=== PATIENT | female | born 1945 | race Caucasian/White ===

== ENCOUNTER 2017-08-23 04:40 | Inpatient (IN) | payer MEDICARE, OTHER ==
[2017-08-23] VITALS (8 sets, daily range): BP systolic 110–154; BP diastolic 55–79
[~2017-08-23] VITALS: Ht 170.2 cm; Wt 72.6 kg
[2017-08-23] MEDS ORDERED: UNOBMED (04:45)
--- NOTE | 2017-08-23 05:36 | Emergency Room Report ---
History of Present Illness General Chief Complaint: Dyspnea/Respdistress Source: Patient, Family Member Present Illness HPI [id number] with measured fever 38/39C at home, chills tonight and "not feeling well. " Mild cough Denies chest pain, SOB, abd pain, dysuria Was visiting ex- in hospital "had to wait in waiting room with sick people" recently. About 2-3 weeks ago, finished Abx for "kidney infection" Supposed to be on suppleemntal O2 for "asthma" but non-compliant per son Allergies: Coded Allergies: TETANUS VACCINES AND TOXOID (Verified Allergy, Unknown, 08/23/17) Patient History Past Medical History: COPD Past Surgical History: none Pertinent Family History: none Social History: Denies: smoking, alcohol use, drug use Now: No Immunizations: UTD Reviewed Nursing Documentation: PMH: Agreed, PSxH: Agreed Review of Systems All Other Systems: negative except mentioned in HPI Physical Exam Vital Signs Date Time Temp Pulse Resp B/P (MAP) Pulse Ox O2 Delivery O2 Flow Rate FiO2 08/23/17 04:39 100.2 114 18 171/70 94 Nasal Cannula Sp02 EP Interpretation: reviewed, normal General Appearance: normal inspection, well appearing, no apparent distress, alert, GCS 15, non-toxic, obese Head: normocephalic, atraumatic Eyes: bilateral eye PERRL, bilateral eye EOMI ENT: normal ENT inspection, hearing grossly normal, normal pharynx, no angioedema, normal voice, TMs + canals normal, uvula midline, moist mucus membranes Neck: normal inspection, full range of motion, supple, thyroid normal, no meningismus, no bony tend Respiratory: normal inspection, lungs clear, normal breath sounds, no rhonchi, no respiratory distress, no retraction, no accessory muscle use, no wheezing, speaking full sentences Cardiovascular #1: regular rate, rhythm, no edema, no JVD, normal capillary refill Gastrointestinal: normal inspection, normal bowel sounds, non tender, soft, no mass, no peritonitis, non-distended, no guarding, no hernia, no pulsatile mass Genitourinary: no CVA tenderness Musculoskeletal: normal inspection, back normal, normal range of motion, no calf tenderness, pelvis stable, Najma's Sign negative Neurologic: normal inspection, alert, oriented x3, responsive, 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 I attest that this information is true, accurate and complete to the best of my knowledge. I understand that any falsification, omission, or concealment of material fact may subject me to administrative, civil, or criminal liability. This patient warrants hospital admission for extreme of age and has a condition that cannot be treated as outpatient. Diagnostic Impression: Primary Impression: Sepsis Qualified Codes: A41.9 - Sepsis, unspecified organism Additional Impression: Pneumonia Qualified Codes: J18.1 - Lobar pneumonia, unspecified organism ER Course VS with tachycardia, fever Likely sepsis CXR with hazy opacity right lung Empiric Abx given Blood Cx pending Elevated leukocytosis Endorsed tele admission Dr Thomas for panel Sepsis Re-examination Time: 537am VS: Temp 99 HR 106 BP 140/84 RR 16 CVS: RRR Respiratory: Lungs clear bilaterally Peripheral pulses: 2+ radial Capillary refill: <2 seconds Skin exam: warm, dry, no rash, not mottled EKG Diagnostic Results Rate: tachycardiac Rhythm: NSR ST Segments: no acute changes ASA given to the pt in ED: No Rhythm Strip Diag. Results EP Interpretation: yes Rate: 105 Rhythm: NSR, no PVC's, no ectopy Chest X-Ray Diagnostic Results Chest X-Ray Diagnostic Results : Chest X-Ray Ordered: Yes # of Views/Limited/Complete: 1 View Indication: Shortness of Breath EP Interpretation: Yes Interpretation: no effusion, no pneumothorax, no acute cardiopulmonary disease, other - Right sided infiltrate Electronically Signed by: Dr Martha Lim MD Last Vital Signs Date Time Temp Pulse Resp B/P (MAP) Pulse Ox O2 Delivery O2 Flow Rate FiO2 08/23/17 04:39 100.2 114 18 171/70 94 Nasal Cannula Status: improved Disposition: ADMITTED INPATIENT Condition: Serious Referrals: NON PHYSICIAN (PCP) MARTHA LIM M.D. Aug 23, 2017 05:36
[2017-08-23 05:44] LABS: BASOPHILS % (AUTO) 0.6 % (0.0-2.0); EOSINOPHILS % (AUTO) 0.1 % (0.0-3.0); LYMPHOCYTES % (AUTO) 8.3 % (20.0-45.0); MEAN CORPUSCULAR HEMOGLOBIN 29.4 PG (27.0-31.0); MEAN CORPUSCULAR HGB CONC 32.4 G/DL (32.0-36.0); MEAN CORPUSCULAR VOLUME 91 FL (80-99); MEAN PLATELET VOLUME 7.4 FL (6.5-10.1); MONOCYTES % (AUTO) 7.8 % (1.0-10.0); NEUTROPHILS % (AUTO) 83.3 % (45.0-75.0); PLATELET COUNT 248 K/UL (150-450); RED BLOOD COUNT 5.03 M/UL (4.20-5.40); RED CELL DISTRIBUTION WIDTH 12.6 % (11.6-14.8); WHITE BLOOD COUNT 16.1 K/UL (4.8-10.8)
[2017-08-23 06:06] LABS: ANION GAP 11 mmol/L (5-15); CALCIUM 8.6 MG/DL (8.5-10.1); CARBON DIOXIDE 21 MMOL/L (21-32); CHLORIDE 106 MMOL/L (98-107); CREATININE 0.7 MG/DL (0.55-1.30); POTASSIUM 3.1 MMOL/L (3.5-5.1); SODIUM 138 MMOL/L (136-145)
[2017-08-23 06:18] LABS: ALANINE AMINOTRANSFERASE 22 U/L (12-78); ALBUMIN/GLOBULIN RATIO 0.6 (1.0-2.7); ASPARTATE AMINO TRANSFERASE 21 U/L (15-37); CKMB < 0.5 NG/ML (0.0-3.6); TOTAL PROTEIN 6.8 G/DL (6.4-8.2)
[2017-08-23 06:23] LABS: BILIRUBIN,DIRECT 0.2 MG/DL (0.0-0.3)
--- NOTE | 2017-08-23 12:40 | Diagnostic Imaging Report ---
Indication: Shortness of breath Technique: One view of the chest Comparison: None Findings: There is cardiomegaly. There is bilateral interstitial and airspace disease diffusely. No definite effusions. Impression: Bilateral interstitial and alveolar infiltrates versus edema diffusely Cardiomegaly
[2017-08-23] MEDS ORDERED: Albuterol/Ipratropium 3ml neb HHN PRN (13:15)
[2017-08-23 14:28] LABS: APPEARANCE,URINE CLEAR; KETONES,URINE NEGATIVE (NEGATIVE); LEUKOCYTE ESTERASE ,URINE 1+ (NEGATIVE); NITRITE,URINE NEGATIVE (NEGATIVE); PH,URINE 5 (4.5-8.0); PROTEIN,URINE NEGATIVE (NEGATIVE); UROBILINOGEN,URINE NORMAL MG/DL (0.0-1.0)
[2017-08-23 14:37] LABS: BACTERIA,URINE FEW /HPF; SQUAMOUS EPITHELIAL CELL,UR FEW /LPF (NONE/OCC)
[2017-08-23] MEDS: D5NS 1,000 ML IV SCH (15:23)
[2017-08-23] MEDS ORDERED: cefTRIAXone 1 GM in D5W 55 ML IVPB SCH (15:30)
[2017-08-23] MEDS: Heparin 5000 units/ml inj SUBQ SCH (20:58)
[2017-08-23] MEDS: NovoLOG Insulin Flexpen SUBQ SCH (21:00)
--- NOTE | 2017-08-23 21:45 | History and Physical Report ---
DATE OF ADMISSION: 08/23/2017 CHIEF COMPLAINT: Pneumonia, possible acute [place]. HISTORY OF PRESENT ILLNESS: The patient is a 72-year-old female. She has a history of hypertension and diabetes, presented with complaints of shortness of breath, cough, congestion, subjective fevers and chills for several weeks prior to admission. She denies any ill contacts. She states she has had a productive cough that has not improved. Because of persisting cough, congestion, and subjective fevers and chills, she presented to the emergency room. On evaluation there, she had an elevated white count of 16,000. X-ray showed bilateral interstitial and alveolar infiltrates. The patient has been pancultured, started on broad-spectrum IV antibiotic therapy. She is now admitted for further inpatient evaluation and care. PAST MEDICAL HISTORY: Significant for history of hypertension and diabetes. PAST SURGICAL HISTORY: None. CURRENT MEDICATIONS: Reconciled and reviewed. ALLERGIES: Include tetanus. SOCIAL HISTORY: Negative for tobacco, ethanol, or drugs. FAMILY HISTORY: Noncontributory. REVIEW OF SYSTEMS: CONSTITUTIONAL: Positive fevers and chills, but no night sweats. HEENT: No headaches or visual changes. CARDIOPULMONARY: No chest pain. Positive shortness breath, cough, and congestion. GASTROINTESTINAL: No nausea or vomiting. GENITOURINARY: No urgency or frequency. MUSCULOSKELETAL: No joint pain or swelling. NEUROLOGIC: No evidence of seizures. PHYSICAL EXAMINATION: VITAL SIGNS: Temperature 98.4, pulse 87, respirations 25, and blood pressure 121/57. GENERAL: The patient is a well developed female, in no apparent distress. HEART: Regular rate and rhythm. LUNGS: Significant for bibasilar rales, right greater than left. ABDOMEN: Soft, nontender, and nondistended. EXTREMITIES: Significant for 1+ pitting edema. LABORATORY DATA: Sodium 138, potassium 4.1, creatinine 0.7, and glucose 148. Lactic acid was 0.8. Bilirubin was 1.1. Troponin 0.120. White count was 16,000, hemoglobin 14, hematocrit 45, and platelets 248. UA was clear. Chest x-ray showed bilateral interstitial infiltrates. ASSESSMENT: 1. This is a pleasant 72-year-old female, admitted with complaints of pneumonia, possible community-acquired pneumonia. 2. Possible acute myocardial infarction. 3. Hypertension. 4. Diabetes. PLAN: Intravenous antibiotic therapy. Supplemental oxygen. Respiratory treatments. We will trend enzymes. Antiplatelet therapy. We will check a venous duplex of the lower extremities. We will check cultures. Cardiology, Infectious Disease, and Pulmonary consultations will be obtained. Herbie Thomas M.D. DR: THIAGO JOB#: [id number] CC:
[2017-08-23] MEDS: Zolpidem 5mg tab ORAL PRN (22:37)
[2017-08-23] MEDS: metFORMIN 500mg tab ORAL SCH (22:37)
[2017-08-23] MEDS: cefTRIAXone 1 GM in D5W 55 ML IVPB SCH (23:57)
[2017-08-24] VITALS (7 sets, daily range): BP systolic 115–158; BP diastolic 55–80
[2017-08-24] MEDS: D5NS 1,000 ML IV SCH ×2 (02:30→15:55)
[2017-08-24] MEDS: NovoLOG Insulin Flexpen SUBQ SCH ×4 (06:00→21:00)
[2017-08-24] MEDS: metFORMIN 500mg tab ORAL SCH ×3 (06:00→17:26)
[2017-08-24 08:21] LABS: BASOPHILS % (AUTO) 0.8 % (0.0-2.0); EOSINOPHILS % (AUTO) 0.5 % (0.0-3.0); LYMPHOCYTES % (AUTO) 24.6 % (20.0-45.0); MEAN CORPUSCULAR HEMOGLOBIN 29.8 PG (27.0-31.0); MEAN CORPUSCULAR HGB CONC 32.7 G/DL (32.0-36.0); MEAN CORPUSCULAR VOLUME 91 FL (80-99); MEAN PLATELET VOLUME 7.8 FL (6.5-10.1); MONOCYTES % (AUTO) 13.5 % (1.0-10.0); NEUTROPHILS % (AUTO) 60.5 % (45.0-75.0); PLATELET COUNT 249 K/UL (150-450); RED BLOOD COUNT 4.65 M/UL (4.20-5.40); RED CELL DISTRIBUTION WIDTH 12.5 % (11.6-14.8); WHITE BLOOD COUNT 9.4 K/UL (4.8-10.8)
[2017-08-24 08:50] LABS: ANION GAP 7 mmol/L (5-15); CARBON DIOXIDE 28 MMOL/L (21-32); CHLORIDE 106 MMOL/L (98-107); CHOLESTEROL 262 MG/DL (< 200); CHOLESTEROL/HDL RATIO 5.2 (3.3-4.4); CREATININE 0.9 MG/DL (0.55-1.30); POTASSIUM 4.2 MMOL/L (3.5-5.1); SODIUM 141 MMOL/L (136-145); THYROID STIMULATING HORMONE 2.297 uiU/mL (0.358-3.740)
[2017-08-24] MEDS: Levofloxacin 500mg tab ORAL SCH (10:20)
[2017-08-24] MEDS: Aspirin EC 81mg tab ORAL SCH (10:20)
[2017-08-24] MEDS: Tolterodine 2mg tab ORAL SCH ×2 (10:21→17:26)
[2017-08-24] MEDS: Heparin 5000 units/ml inj SUBQ SCH ×2 (10:23→21:14)
--- NOTE | 2017-08-24 11:09 | General Progress Note ---
Assessment/Plan Problem List: (1) Dysphagia ICD Codes: R13.10 - Dysphagia, unspecified SNOMED: 48865035, 117509117 (2) Diabetes ICD Codes: E11.9 - Type 2 diabetes mellitus without complications SNOMED: 57034979 (3) AMI (acute mesenteric ischemia) ICD Codes: K55.059 - Acute (reversible) ischemia of intestine, part and extent unspecified SNOMED: 12500983 (4) Sepsis ICD Codes: A41.9 - Sepsis, unspecified organism SNOMED: 93622949 Qualifiers: Qualified Codes: A41.9 - Sepsis, unspecified organism (5) Pneumonia ICD Codes: J18.9 - Pneumonia, unspecified organism SNOMED: 746349293 Qualifiers: Qualified Codes: J18.1 - Lobar pneumonia, unspecified organism Status: stable, progressing Assessment/Plan iv abx id eval video swallow monitor cxr cards eval cont diabetes rx bp rx Subjective ROS Limited/Unobtainable: No Constitutional: Reports: malaise, weakness HEENT: Reports: no symptoms Cardiovascular: Reports: no symptoms Respiratory: Reports: cough Gastrointestinal/Abdominal: Reports: difficulty swallowing Genitourinary: Reports: no symptoms Neurologic/Psychiatric: Reports: no symptoms Endocrine: Reports: no symptoms Hematologic/Lymphatic: Reports: no symptoms Allergies: Coded Allergies: TETANUS VACCINES AND TOXOID (Verified Allergy, Unknown, 08/23/17) All Systems: reviewed and negative except above Subjective better today. decreased sob. problems with swallowing. wbc trending down Objective Last 24 Hour Vital Signs Date Time Temp Pulse Resp B/P (MAP) Pulse Ox O2 Delivery O2 Flow Rate FiO2 08/24/17 04:06 97.5 85 20 158/80 89 Room Air 82 08/24/17 04:00 86 08/24/17 03:22 97.5 92 18 126/59 93 Room Air 08/24/17 00:00 101 08/24/17 00:00 97.5 72 19 115/67 96 Room Air 74 08/23/17 20:24 99.0 95 18 130/55 96 Room Air 08/23/17 20:00 98 08/23/17 16:16 97.0 84 18 152/78 95 Room Air 08/23/17 16:00 90 08/23/17 14:50 98.4 87 25 121/57 97 Room Air 2.0 08/23/17 13:38 98.4 87 25 121/57 97 Room Air 08/23/17 12:40 98.4 94 18 115/79 95 Nasal Cannula 2.0 Intake and Output 08/23/17 08/24/17 19:00 07:00 Intake Total 270 ml Balance 270 ml Intake Oral 120 ml IV Total 150 ml # Voids 1 # Bowel Movements 2 Laboratory Tests 08/23/17 13:24: Troponin I 0.267H 08/23/17 14:02: Urine Color Pale yellow, Urine Appearance Clear, Urine pH 5, Urine Specific [place] 1.005, Urine Protein Negative, Urine Glucose (UA) Negative, Urine Ketones Negative, Urine Occult Blood 4+H, Urine Nitrite Negative, Urine Bilirubin Negative, Urine Urobilinogen Normal, Urine Leukocyte Esterase 1+H, Urine RBC 2-4H, Urine WBC 5-10H, Urine Squamous Epithelial Cells Few, Urine Bacteria Few 08/24/17 07:10: Troponin I 0.061H, White Blood Count 9.4, Red Blood Count 4.65, Hemoglobin 13.9 , Hematocrit 42.3, Mean Corpuscular Volume 91, Mean Corpuscular Hemoglobin 29.8 , Mean Corpuscular Hemoglobin Concent 32.7, Red Cell Distribution Width 12.5, Platelet Count 249, Mean Platelet Volume 7.8, Neutrophils (%) (Auto) 60.5, Lymphocytes (%) (Auto) 24.6, Monocytes (%) (Auto) 13.5H, Eosinophils (%) (Auto) 0.5, Basophils (%) (Auto) 0.8, Sodium Level 141, Potassium Level 4.2, Chloride Level 106, Carbon Dioxide Level 28, Anion Gap 7, Blood Urea Nitrogen 18, Creatinine 0.9, Estimat Glomerular Filtration Rate , Glucose Level 127H, Calcium Level 9.0, Triglycerides Level 191H, Cholesterol Level 262H, LDL Cholesterol 181H, HDL Cholesterol 50, Cholesterol/HDL Ratio 5.2H, Thyroid Stimulating Hormone (TSH) 2.297 Height (Feet): 5 Height (Inches): 7.00 Weight (Pounds): 160 General Appearance: WD/WN, alert Neck: supple Cardiovascular: normal rate, regular rhythm Respiratory/Chest: chest wall non-tender, lungs clear, normal breath sounds Abdomen: normal bowel sounds, non tender, soft, no organomegaly Edema: no edema noted Arm (L), no edema noted Arm (R), no edema noted Leg (L), no edema noted Leg (R), no edema noted Pedal (L), no edema noted Pedal (R), no edema noted Generalized 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
--- NOTE | 2017-08-24 16:18 | Wound Care Consultation ---
Wound Assessment Wound Assessment : Wound Number: 1 Wound Present on Admission: Yes New Wound: No Status Change of Wound: No Wound Location Body Site Modif: left, right, upper Wound Location Body Site: arm Wound Type: scab Suly Test: Does not Suly Wound Thickness: Full Thickness Percent of Wound Morrison/Red: 100 Wound Drainage Amount: None Wound Drainage Odor: None/Absent Tissue Surrounding Wound: Intact Wound General Appearance: Reddened Wound Comment #1 Left and right arm with dry scabs. According to Pt they are caused by self inflicted scratches. Recommendations -Leave area open to air -Keep clean and dry -Optimize nutrition -Assess and f/u accordingly for any changes JOSSE DANIELLE RN Aug 24, 2017 16:18
--- NOTE | 2017-08-24 18:47 | Consultation ---
DATE OF CONSULTATION: 08/24/2017 INFECTIOUS DISEASES CONSULTATION CONSULTING PHYSICIAN: Ashlyn Good M.D. REFERRING PHYSICIAN: Herbie Thomas M.D. REASON FOR CONSULTATION: Fever. HISTORY OF PRESENTING ILLNESS: This is a 72-year-old lady with history of diabetes, hypertension, and hypercholesterolemia who comes in with fever and chills along with cough, congestion, and shortness of breath. She was found to have leukocytosis and pneumonia, and an Infectious Diseases consultation has been obtained for antibiotics. PAST MEDICAL HISTORY: 1. History of diabetes. 2. Hypertension. 3. Hypercholesterolemia. MEDICATIONS AN INPATIENT: She is on Xalatan drops, aspirin, Levaquin, Detrol, Januvia, ceftriaxone, metformin, Ambien, subcutaneous heparin, insulin, albuterol and ipratropium. ALLERGIES: To tetanus vaccine and toxoid. SOCIAL HISTORY: She does not smoke, drink, or use drugs. FAMILY HISTORY: Her mother had lung cancer from secondhand smoking. REVIEW OF SYSTEMS: RESPIRATORY: She had fever and chills. She has a cough and shortness of breath. No chest pain. CARDIAC: No chest pain. No palpitation. No dizziness. No syncope. GASTROINTESTINAL: No nausea. No vomiting. No abdominal pain or diarrhea. PHYSICAL EXAMINATION: VITAL SIGNS: Temperature of 97.5, T-max of 99, pulse of 85, respiratory rate of 20, blood pressure 158/80, and O2 saturation of 89%. HEENT: Pupils equally reactive to light and accommodation. Mouth appears clean without thrush. NECK: Supple. No adenopathy. No JVD. CARDIOVASCULAR: Regular rate and rhythm. No murmurs. LUNGS: Clear to auscultation bilaterally. No crackles. No wheezes. ABDOMEN: Soft and nontender. No organomegaly. EXTREMITIES: No cyanosis. No clubbing. No edema. LABORATORY AND DIAGNOSTIC DATA: White count of 16 yesterday, white count of 9.4 today; hemoglobin 13.9; hematocrit 42.3; MCV 91; and platelet count of 249,000 with neutrophils of 60%. Sodium 141, potassium 4.2, chloride 106, bicarbonate 28, BUN 18, creatinine 0.9, glucose 127, and calcium of 9. Troponin 0.06. Cholesterol of 262. AST 21, ALT 22, and alkaline phosphatase 90. CK of 49, CK-MB less than 0.5. Total protein 6.8. Albumin 3.5. UA showing 5 to 10 white cells. Chest x-ray is showing bilateral interstitial and alveolar infiltrates versus edema. ASSESSMENT: 1. This is a 72-year-old lady with history of diabetes, hypertension and hypercholesterolemia who comes in with community-acquired pneumonia versus atypical pneumonia. 2. Leukocytosis is improving. 3. Fever has improved. PLAN: 1. Continue ceftriaxone and Levaquin. 2. We will order sputum for Gram stain and culture. 3. We will order for serum Legionella antibody and mycoplasma serology. 4. We will order a nasal swab for influenza. I would like to thank, Dr. Thomas, for this consultation. Ashlyn Good M.D. DR: LUISANA JOB#: [id number] CC: Herbie Thomas M.D.
[2017-08-24] MEDS: Latanoprost 0.005% Opth 2.5ml Soln BOTH EYES SCH (22:04)
[2017-08-24] MEDS: cefTRIAXone 1 GM in D5W 55 ML IVPB SCH (23:27)
[2017-08-24] MEDS: Zolpidem 5mg tab ORAL PRN (23:39)
--- NOTE | 2017-08-25 00:24 | Cardiology Report ---
APPROVED REPORT EKG Measurement Heart [id number] Sinus tachycardia Cannot rule out Anterior infarct, age undetermined Abnormal ECG
--- NOTE | 2017-08-25 02:15 | Progress Note ---
DATE: 08/24/2017 CARDIOLOGY PROGRESS NOTE SUBJECTIVE: The patient has less shortness of breath. She has congestion and difficulty swallowing still. No chest pain. OBJECTIVE: VITAL SIGNS: Blood pressure 158/80, pulse 85, respirations 20, and afebrile. LUNGS: With coarse breath sounds and rhonchi. Few rales. CARDIAC: Regular rhythm and rate. Normal S1 and S2 with a fourth heart sound. ABDOMEN: Soft and nontender. EXTREMITIES: Trace edema. LABORATORY AND DIAGNOSTIC DATA: Sodium 141, potassium 4.2, bicarbonate 28, BUN 18, creatinine 0.9, and glucose 127. Troponin peaked at 0.267, now 0.061. Total cholesterol 262 with LDL 181. White count 9.4 and hemoglobin 13.9. Echocardiogram revealed normal ejection fraction with mild mitral regurgitation and diastolic dysfunction. IMPRESSION: 1. Sepsis. 2. Pneumonia. 3. Acute myocardial infarction. 4. Hypertensive heart disease. 5. Type 2 diabetes mellitus. 6. Hyperlipidemia. 7. Acute diastolic CHF Critical and guarded. PLAN: 1. Antiplatelet therapy with aspirin. 2. Antibiotics and bronchodilators. 3. Add statin drug. 4. Monitor volume status and cardiorenal parameters. 5. Reassess for further antianginal therapy once metabolic and infectious disease parameters are stabilized. Antonio Julio M.D. DR: JAYESH JOB#: [id number] CC: IVONNE
[2017-08-25 04:00] VITALS: BP 132/72
[2017-08-25] MEDS: D5NS 1,000 ML IV SCH ×2 (05:15→10:30)
[2017-08-25] MEDS: metFORMIN 500mg tab ORAL SCH ×3 (06:29→16:30)
[2017-08-25] MEDS: NovoLOG Insulin Flexpen SUBQ SCH ×4 (06:30→20:31)
[2017-08-25 08:00] VITALS: BP 138/52
[2017-08-25 08:05] LABS: ALANINE AMINOTRANSFERASE 29 U/L (12-78); ALBUMIN/GLOBULIN RATIO 0.6 (1.0-2.7); ANION GAP 7 mmol/L (5-15); ASPARTATE AMINO TRANSFERASE 21 U/L (15-37); CARBON DIOXIDE 28 MMOL/L (21-32); CHLORIDE 107 MMOL/L (98-107); CREATININE 0.8 MG/DL (0.55-1.30); SODIUM 142 MMOL/L (136-145); TOTAL PROTEIN 6.8 G/DL (6.4-8.2)
[2017-08-25] MEDS: Tolterodine 2mg tab ORAL SCH ×3 (09:00→17:56)
[2017-08-25] MEDS: Levofloxacin 500mg tab ORAL SCH (09:03)
[2017-08-25] MEDS: Aspirin EC 81mg tab ORAL SCH (09:06)
[2017-08-25] MEDS: Heparin 5000 units/ml inj SUBQ SCH ×2 (09:13→20:30)
--- NOTE | 2017-08-25 09:25 | General Progress Note ---
Assessment/Plan Problem List: (1) Dysphagia ICD Codes: R13.10 - Dysphagia, unspecified SNOMED: 28221989, 217492991 (2) Diabetes ICD Codes: E11.9 - Type 2 diabetes mellitus without complications SNOMED: 53039083 (3) AMI (acute mesenteric ischemia) ICD Codes: K55.059 - Acute (reversible) ischemia of intestine, part and extent unspecified SNOMED: 34773322 (4) Sepsis ICD Codes: A41.9 - Sepsis, unspecified organism SNOMED: 93871617 Qualifiers: Qualified Codes: A41.9 - Sepsis, unspecified organism (5) Pneumonia ICD Codes: J18.9 - Pneumonia, unspecified organism SNOMED: 936979951 Qualifiers: Qualified Codes: J18.1 - Lobar pneumonia, unspecified organism Status: stable, progressing Assessment/Plan iv abx id eval/cards eval appeciated video swallow monitor cxr cont diabetes rx bp rx rita abd and legs Subjective ROS Limited/Unobtainable: No Constitutional: Reports: malaise, weakness HEENT: Reports: no symptoms Cardiovascular: Reports: no symptoms Respiratory: Reports: cough, shortness of breath Gastrointestinal/Abdominal: Reports: no symptoms Genitourinary: Reports: no symptoms Neurologic/Psychiatric: Reports: no symptoms Endocrine: Reports: no symptoms Hematologic/Lymphatic: Reports: no symptoms Allergies: Coded Allergies: TETANUS VACCINES AND TOXOID (Verified Allergy, Unknown, 08/23/17) All Systems: reviewed and negative except above Subjective cough increased today. decreased sob. problems with swallowing. wbc trending down. requesting abd rita and leg rita due to pain Objective Last 24 Hour Vital Signs Date Time Temp Pulse Resp B/P (MAP) Pulse Ox O2 Delivery O2 Flow Rate FiO2 08/25/17 08:00 97.8 94 19 138/52 93 Room Air 08/25/17 04:00 97.3 77 22 132/72 91 Room Air 77 08/25/17 04:00 78 08/25/17 00:00 101 08/24/17 20:00 97.7 83 23 143/55 94 Room Air 83 08/24/17 20:00 83 08/24/17 16:00 97.9 91 18 140/78 Room Air 08/24/17 16:00 93 08/24/17 12:00 97.4 89 20 145/79 96 Room Air 82 08/24/17 12:00 82 Intake and Output 08/24/17 08/25/17 19:00 07:00 Intake Total 783 ml 900 ml Balance 783 ml 900 ml Intake Oral 708 ml IV Total 75 ml 900 ml # Voids 3 Laboratory Tests 08/25/17 06:55: Sodium Level 142, Potassium Level 4.0, Chloride Level 107, Carbon Dioxide Level 28, Anion Gap 7, Blood Urea Nitrogen 13, Creatinine 0.8, Estimat Glomerular Filtration Rate , Glucose Level 125H, Calcium Level 9.0, Total Bilirubin 0.3, Aspartate Amino Transf (AST/SGOT) 21, Alanine Aminotransferase (ALT/SGPT) 29, Alkaline Phosphatase 86, Troponin I 0.016, Pro-B-Type Natriuretic Peptide 197H, Total Protein 6.8, Albumin 2.6L, Globulin 4.2, Albumin/Globulin Ratio 0.6L Height (Feet): 5 Height (Inches): 7.00 Weight (Pounds): 160 Objective General Appearance: WD/WN, alert Neck: supple Cardiovascular: normal rate, regular rhythm Respiratory/Chest: chest wall non-tender, lungs clear, normal breath sounds Abdomen: normal bowel sounds, non tender, soft, no organomegaly Edema: no edema noted Arm (L), no edema noted Arm (R), no edema noted Leg (L), no edema noted Leg (R), no edema noted Pedal (L), no edema noted Pedal (R), no edema noted 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
--- NOTE | 2017-08-25 11:00 | Infectious Diseases Prog Note ---
Assessment/Plan Assessment/Plan antibiotics : ceftriaxone, levoquin A 1. pneumonia 2. leucocytosis improving 3. DM 4. HTN 5. DC P 1. continue ceftriaxone, levoquin 2. will follow up cultures Subjective Constitutional: Denies: fever, chills Respiratory: Reports: shortness of breath, dry cough Gastrointestinal/Abdominal: Reports: diarrhea, Denies: nausea, vomiting Musculoskeletal: Denies: pain Allergies: Coded Allergies: TETANUS VACCINES AND TOXOID (Verified Allergy, Unknown, 08/23/17) Objective Vital Signs Last 24 Hour Vital Signs Date Time Temp Pulse Resp B/P (MAP) Pulse Ox O2 Delivery O2 Flow Rate FiO2 08/25/17 08:00 97.8 94 19 138/52 93 Room Air 08/25/17 04:00 97.3 77 22 132/72 91 Room Air 77 08/25/17 04:00 78 08/25/17 00:00 101 08/24/17 20:00 97.7 83 23 143/55 94 Room Air 83 08/24/17 20:00 83 08/24/17 16:00 97.9 91 18 140/78 Room Air 08/24/17 16:00 93 08/24/17 12:00 97.4 89 20 145/79 96 Room Air 82 08/24/17 12:00 82 Height (Feet): 5 Height (Inches): 7.00 Weight (Pounds): 160 Respiratory/Chest: lungs clear Cardiovascular: normal rate, regular rhythm, no gallop/murmur Abdomen: soft, non tender Extremities: no edema Laboratory Tests Test 08/25/17 06:55 Sodium Level 142 MMOL/L (136-145) Potassium Level 4.0 MMOL/L (3.5-5.1) Chloride Level 107 MMOL/L (98-107) Carbon Dioxide Level 28 MMOL/L (21-32) Anion Gap 7 mmol/L (5-15) Blood Urea Nitrogen 13 mg/dL (7-18) Creatinine 0.8 MG/DL (0.55-1.30) Estimat Glomerular Filtration Rate mL/min (>60) Glucose Level 125 MG/DL (74-106) H Calcium Level 9.0 MG/DL (8.5-10.1) Total Bilirubin 0.3 MG/DL (0.2-1.0) Aspartate Amino Transf (AST/SGOT) 21 U/L (15-37) Alanine Aminotransferase (ALT/SGPT) 29 U/L (12-78) Alkaline Phosphatase 86 U/L (46-116) Troponin I 0.016 ng/mL (0.000-0.056) Pro-B-Type Natriuretic Peptide 197 pg/mL (0-125) H Total Protein 6.8 G/DL (6.4-8.2) Albumin 2.6 G/DL (3.4-5.0) L Globulin 4.2 g/dL Albumin/Globulin Ratio 0.6 (1.0-2.7) L SHARAN OLIVIER Aug 25, 2017 11:00
[2017-08-25 12:00] VITALS: BP 131/60
[2017-08-25 16:00] VITALS: BP 131/74
[2017-08-25 20:00] VITALS: BP 142/70
[2017-08-25] MEDS: Latanoprost 0.005% Opth 2.5ml Soln BOTH EYES SCH (20:30)
[2017-08-25] MEDS: Zolpidem 5mg tab ORAL PRN (23:39)
[2017-08-25] MEDS: cefTRIAXone 1 GM in D5W 55 ML IVPB SCH (23:40)
[2017-08-26] VITALS (7 sets, daily range): BP systolic 132–157; BP diastolic 56–82
[2017-08-26] MEDS: metFORMIN 500mg tab ORAL SCH ×3 (05:35→16:30)
[2017-08-26] MEDS: NovoLOG Insulin Flexpen SUBQ SCH ×4 (05:38→20:56)
--- NOTE | 2017-08-26 09:00 | Infectious Diseases Prog Note ---
Assessment/Plan Assessment/Plan A 1. pneumonia 2. leucocytosis improving 3. DM 4. HPN 5. RI P 1. continue ceftriaxone, Levaquin 2. will follow up cultures Subjective ROS Limited/Unobtainable: No Constitutional: Reports: no symptoms, other - feels better Respiratory: Reports: dry cough Gastrointestinal/Abdominal: Reports: diarrhea, other - mild Genitourinary: Reports: no symptoms Musculoskeletal: Reports: no symptoms Allergies: Coded Allergies: TETANUS VACCINES AND TOXOID (Verified Allergy, Unknown, 08/23/17) Objective Vital Signs Last 24 Hour Vital Signs Date Time Temp Pulse Resp B/P (MAP) Pulse Ox O2 Delivery O2 Flow Rate FiO2 08/26/17 04:40 76 08/26/17 04:00 97.5 75 21 132/56 94 08/26/17 00:00 87 08/26/17 00:00 97.9 84 21 143/77 92 08/25/17 20:00 81 08/25/17 20:00 97.7 60 21 142/70 99 08/25/17 16:00 82 08/25/17 16:00 97.4 81 19 131/74 93 Room Air 08/25/17 12:00 97.6 83 19 131/60 94 Room Air 08/25/17 12:00 78 Height (Feet): 5 Height (Inches): 7.00 Weight (Pounds): 160 General Appearance: no acute distress HEENT: mucous membranes moist Respiratory/Chest: lungs clear, other - kyphosis Cardiovascular: normal rate Abdomen: soft, non tender Extremities: no edema, other - Varicose vein of legs Neurologic/Psychiatric: alert, oriented x 3, responsive Current Medications Medications (Trade) Dose Ordered Sig/Elías Route PRN Reason Start Time Stop Time Status Last Admin Dose Admin Albuterol/ Ipratropium (Albuterol/ Ipratropium) 3 ml Q4H PRN HHN Shortness of Breath 08/23/17 13:15 08/28/17 13:14 Aspirin (Ecotrin) 81 mg DAILY ORAL 08/24/17 09:00 09/23/17 08:59 08/25/17 09:06 Atorvastatin Calcium (Lipitor) 10 mg BEDTIME ORAL 08/25/17 21:00 09/24/17 20:59 08/25/17 20:28 Ceftriaxone Sodium 1 gm/ Dextrose 55 ml @ 110 mls/hr Q24H IVPB 08/24/17 00:00 08/31/17 00:00 08/25/17 23:40 Dextrose (Dextrose 50%) STAT PRN IV Hypoglycemia 08/23/17 16:45 09/22/17 16:44 Dextrose/Sodium Chloride 1,000 ml @ 75 mls/hr [id number] IV 08/23/17 13:15 09/22/17 13:14 08/25/17 10:30 Heparin Sodium (Porcine) (Heparin 5000 units/ml) 5,000 units EVERY 12 HOURS SUBQ 08/23/17 21:00 09/22/17 20:59 08/25/17 20:30 Insulin Aspart (NovoLOG) BEFORE MEALS AND HS SUBQ 08/23/17 21:00 09/22/17 20:59 Latanoprost (Xalatan) 1 drop BEDTIME BOTH EYES 08/24/17 23:00 09/23/17 22:59 08/25/17 20:30 Levofloxacin (Levaquin) 500 mg DAILY ORAL 08/24/17 09:00 08/31/17 08:59 08/25/17 09:03 Metformin HCl (Glucophage) 500 mg TIAC ORAL 08/23/17 22:00 09/22/17 21:59 08/26/17 05:35 Sitagliptin Phosphate (Januvia) 100 mg ACBREAKFAST ORAL 08/24/17 06:30 09/23/17 06:29 08/26/17 05:35 Tolterodine Tartrate (Detrol) 2 mg TWICE A DAY ORAL 08/24/17 09:00 09/23/17 08:59 08/24/17 17:26 Zolpidem Tartrate (Ambien) 5 mg HSPRN PRN ORAL Insomnia 08/23/17 21:30 08/30/17 21:29 08/25/17 23:39 SHITAL MADRID Aug 26, 2017 09:00
[2017-08-26] MEDS: D5NS 1,000 ML IV SCH ×2 (09:05→21:32)
[2017-08-26] MEDS: Levofloxacin 500mg tab ORAL SCH (09:05)
[2017-08-26] MEDS: Tolterodine 2mg tab ORAL SCH ×2 (09:05→17:34)
[2017-08-26] MEDS: Aspirin EC 81mg tab ORAL SCH (09:05)
--- NOTE | 2017-08-26 09:06 | General Progress Note ---
Assessment/Plan Problem List: (1) Dysphagia ICD Codes: R13.10 - Dysphagia, unspecified SNOMED: 23872730, 130260119 (2) Diabetes ICD Codes: E11.9 - Type 2 diabetes mellitus without complications SNOMED: 11140508 (3) AMI (acute mesenteric ischemia) ICD Codes: K55.059 - Acute (reversible) ischemia of intestine, part and extent unspecified SNOMED: 64588767 (4) Sepsis ICD Codes: A41.9 - Sepsis, unspecified organism SNOMED: 61491986 Qualifiers: Qualified Codes: A41.9 - Sepsis, unspecified organism (5) Pneumonia ICD Codes: J18.9 - Pneumonia, unspecified organism SNOMED: 946876726 Qualifiers: Qualified Codes: J18.1 - Lobar pneumonia, unspecified organism Status: stable, progressing Assessment/Plan iv abx id eval/cards eval appeciated monitor cxr cont diabetes rx bp rx rita abd and legs- follow up check cdiff add probiotic Subjective ROS Limited/Unobtainable: No Constitutional: Reports: malaise, weakness HEENT: Reports: no symptoms Cardiovascular: Reports: no symptoms Respiratory: Reports: cough Gastrointestinal/Abdominal: Reports: diarrhea Genitourinary: Reports: no symptoms Neurologic/Psychiatric: Reports: no symptoms Endocrine: Reports: no symptoms Hematologic/Lymphatic: Reports: no symptoms Allergies: Coded Allergies: TETANUS VACCINES AND TOXOID (Verified Allergy, Unknown, 08/23/17) All Systems: reviewed and negative except above Subjective feels better today. mild diarrhea. vascular rita pending. no chest pain no sob. Objective Last 24 Hour Vital Signs Date Time Temp Pulse Resp B/P (MAP) Pulse Ox O2 Delivery O2 Flow Rate FiO2 08/26/17 04:40 76 08/26/17 04:00 97.5 75 21 132/56 94 08/26/17 00:00 87 08/26/17 00:00 97.9 84 21 143/77 92 08/25/17 20:00 81 08/25/17 20:00 97.7 60 21 142/70 99 08/25/17 16:00 82 08/25/17 16:00 97.4 81 19 131/74 93 Room Air 08/25/17 12:00 97.6 83 19 131/60 94 Room Air 12/23/17 12:00 78 Intake and Output 08/25/17 08/26/17 19:00 07:00 Intake Total 836 ml 375 ml Balance 836 ml 375 ml Intake Oral 236 ml IV Total 600 ml 375 ml # Voids 2 4 # Bowel Movements 1 2 Height (Feet): 5 Height (Inches): 7.00 Weight (Pounds): 160 Objective General Appearance: WD/WN, alert Neck: supple Cardiovascular: normal rate, regular rhythm Respiratory/Chest: chest wall non-tender, lungs clear, normal breath sounds Abdomen: normal bowel sounds, non tender, soft, no organomegaly Edema: no edema noted Arm (L), no edema noted Arm (R), no edema noted Leg (L), no edema noted Leg (R), no edema noted Pedal (L), no edema noted Pedal (R), no edema noted Generalized Neurologic: environmental aide II-XII grossly normal, no motor/sensory deficits, abnormal gait , alert ARIAN COUGHLIN Aug 26, 2017 09:05
[2017-08-26] MEDS: Heparin 5000 units/ml inj SUBQ SCH ×2 (09:07→20:55)
--- NOTE | 2017-08-26 09:39 | Diagnostic Imaging Report ---
Indication: Cough Technique: XRAY Chest 1v Comparison: 08/23/2017 Findings: Heart size and mediastinal contours are stable. There is persistent interstitial opacification/edema. There are patchy bilateral airspace opacities. These are slightly improved compared to prior exam, particularly in the right lung. No definite pneumothorax. Osseous structures are stable Impression: Cardiomegaly with interstitial and patchy bladder airspace opacities thought to represent pulmonary edema. Superimposed pneumonia should be excluded clinically. There is slight improved aeration of the right lung compared to the prior exam.
[2017-08-26] MEDS: Lactobacillus-GG tablet ORAL SCH ×2 (10:13→20:54)
--- NOTE | 2017-08-26 12:12 | Diagnostic Imaging Report ---
Indication: Abdominal pain Technique: Multiplanar grayscale and color Doppler imaging of the abdomen Comparison: None Findings: Limited evaluation due to body habitus and overlying bowel gas. This particularly limits evaluation of the pancreas and left hepatic lobe. The right liver the liver measures 16 cm in length. No discrete hepatic lesion is appreciated sonographically. The right kidney measures 12 cm in length. Demonstrates normal parenchymal thickness and echogenicity. There is no evidence of hydronephrosis on the right. Impression: Limited, incomplete exam with images only of the right hepatic lobe and right kidney. No gross abnormality is seen. Repeat exam or CT of the abdomen recommended for better evaluation.
[2017-08-26] MEDS ORDERED: D5NS 1000ml IV ONE (12:33)
--- NOTE | 2017-08-26 14:44 | Cardiology Report ---
APPROVED REPORT EXAM: Two-dimensional and M-mode echocardiogram with Doppler and color Doppler. INDICATION ACUTE MYOCARDIAL INFARCTION M-Mode DIMENSIONS IVSd1.3 (0.7-1.1cm) LVDd4.7 (3.5-5.6cm) PWd1.3 (0.7-1.1cm) IVSs1.7 cm LVDs3.0 (2.5-4.0cm) PWs2.0 cm Technically difficult study due to poor acoustical windows and patient position. Normal left ventricular chamber size. This study precludes assessment of LV wall motion. Left ventricular ejection fraction estimated to be 55 %. Mild left ventricular hypertrophy by 2-D. No evidence of pericardial effusion. All other cardiac chamber size are within normal. Focal aortic valve sclerosis with adequate cusp excursion. Thickened mitral valve leaflets with normal excursion. Mitral annulus and aortic root calcification. Normal pulmonic valve structure. Normal tricuspid valve structure. IVC at 2.0 cm without physiologic collapse. A color flow and spectral Doppler study was performed and revealed: No aortic regurgitation. Mild mitral regurgitation. Mitral diastolic velocities suggest reduced left ventricular relaxation c/w mild LV diastolic dysfunction (Grade I ) Trace tricuspid regurgitation. Tricuspid systolic velocities suggests peak right ventricular systolic pressure of 26 mmHg No Pulmonic regurgitation present.
--- NOTE | 2017-08-26 16:00 | Progress Note ---
DATE: 08/25/2017 SUBJECTIVE: The patient has no chest pain. She is less short of breath. She continues to have cough and congestion. Monitored rhythm, sinus, rare atrial ectopics. OBJECTIVE: VITAL SIGNS: Blood pressure 138/52, pulse 94, respiratory rate 19, afebrile. GENERAL: Moderately obese. EXTREMITIES: Asymmetric leg swelling on the left, nonpitting predominantly. LUNGS: Coarse breath sounds with rhonchi. HEART: Regular rhythm and rate. Normal S1, S2 with no murmur. ABDOMEN: Obese. LABORATORY DATA: Sodium 142, potassium 4, bicarbonate 28, BUN 13, creatinine 0.8, glucose 125. Troponin 0.016. IMPRESSION: 1. Acute myocardial infarction. 2. [id number] protein-calorie malnutrition. 3. Dyslipidemia. 4. Hypertensive heart disease. 5. Type 2 diabetes mellitus. 6. Pneumonia with sepsis. PLAN: 1. Continue anti-platelet therapy, statin drug. 2. Maintain antibiotics and bronchodilators. 3. Monitor volume status and cardiorenal parameters with trending of natriuretic peptide assay. 4. Respiratory hygiene. Antonio Julio M.D. DR: Malathi JOB#: [id number] CC:
--- NOTE | 2017-08-26 20:15 | Consultation ---
DATE OF CONSULTATION: 08/23/2017 CARDIOLOGY CONSULTATION. CONSULTING PHYSICIAN: Antonio Julio M.D. REQUESTING PHYSICIAN: Herbie Thomas M.D. REASON FOR CONSULTATION: Elevated troponin level, suggesting acute myocardial infarction. HISTORY OF PRESENT ILLNESS: This is a 72-year-old female with a history of hypertensive heart disease and generalized atherosclerosis. She presented to the emergency room with shortness of breath, cough, and congestion with subjective fevers and chills for several weeks prior to admission, worsening on the day prior to admission and unresponsive to outpatient management. She denied chest pain. She did have some leg swelling. Concern was raised over an abnormal chest x-ray, white blood count, and troponin level with a lot of prompting this consultation. PAST MEDICAL HISTORY: Hypertension, type 2 diabetes mellitus, obesity, osteoarthritis. MEDICATIONS: Prior to admission, reviewed and reconciled. ALLERGIES: Tetanus. SOCIAL HISTORY: Nonsmoker. No alcohol or substance abuse. FAMILY HISTORY: Noncontributory. REVIEW OF SYSTEMS: No loss of vision or hearing. No history of kidney failure. No change in bowel habits. No history of seizure or strokes. Denies prior history of blood clotting. No history of myocardial infarction or irregular heartbeats or endocarditis. PHYSICAL EXAMINATION: VITAL SIGNS: Afebrile, blood pressure 121/57, heart rater 87, respiratory rate 25. GENERAL: Obese. LUNGS: Coarse breath sounds with rhonchi. HEART: Regular rhythm and rate. Normal S1, S2. ABDOMEN: Soft, obese, nontender. EXTREMITIES: With 1+ pitting edema, left greater than right. LABORATORY AND DIAGNOSTIC DATA: Chest x-ray, bilateral interstitial infiltrates. White count 16, hemoglobin 14. Sodium 138, potassium 4.1, creatinine 0.7. Troponin 0.48. IMPRESSION: 1. Acute myocardial infarction. 2. Community-acquired pneumonia. 3. Hypertensive heart disease. 4. Type 2 diabetes mellitus. 5. Asymmetric leg edema. PLAN: Bronchodilators. Add nasal oxygen. Empiric IV antibiotics. Antiplatelet therapy. Venous duplex scan of the lower extremities. Titration of antihypertensive drugs insulin coverage by sliding scale. Echocardiogram to assess left ventricular function. Serial troponin levels. Lipid panel. Further recommendations will be followed based on clinical findings. Antonio Julio M.D. DR: Dontae JOB#: [id number] CC:
[2017-08-26] MEDS: Latanoprost 0.005% Opth 2.5ml Soln BOTH EYES SCH (20:54)
[2017-08-26] MEDS: cefTRIAXone 1 GM in D5W 55 ML IVPB SCH (23:32)
[2017-08-27 00:41] VITALS: BP 158/75
[2017-08-27] MEDS: Zolpidem 5mg tab ORAL PRN ×2 (00:47→22:59)
--- NOTE | 2017-08-27 03:15 | Progress Note ---
DATE: 08/26/2017 CARDIOLOGY PROGRESS NOTE SUBJECTIVE: The patient has less shortness of breath and congestion. Still with mild diarrhea. No chest pain. PHYSICAL EXAMINATION: VITAL SIGNS: Blood pressure 132/56, pulse 75, respiratory rate 21, afebrile. Monitored rhythm sinus. LUNGS: Coarse breath sounds. Scattered rhonchi. HEART: Regular rhythm and rate. Normal S1, S2 with a fourth heart sound. ABDOMEN: Soft. EXTREMITIES: With dependent edema, asymmetric on the left greater than right. DIAGNOSTIC DATA: Abdominal ultrasound is noted for limited study with no acute process. Venous duplex scan is pending. Chest x-ray reveals interstitial patchy airspace disease with possible superimposed pneumonia. IMPRESSION: 1. Acute myocardial infarction. 2. Moderate protein-calorie malnutrition. 3. Pneumonia. 4. Type 2 diabetes mellitus. 5. Asymmetric lower extremity edema raising concern for deep venous thrombosis. 6. Hypertensive heart disease. 7. Acute and chronic diastolic congestive heart failure. PLAN: 1. Anti-platelet therapy and statin drugs without change. 2. Antimicrobials and respiratory hygiene as is. 3. Cautious diuresis. 4. Await venous duplex study. 5. DVT and stress ulcer prophylaxis. Antonio Julio M.D. DR: DEBBY JOB#: [id number] CC:
[2017-08-27 04:00] VITALS: BP 151/69
[2017-08-27] MEDS: NovoLOG Insulin Flexpen SUBQ SCH ×4 (06:15→21:00)
[2017-08-27] MEDS: metFORMIN 500mg tab ORAL SCH ×3 (06:30→17:33)
[2017-08-27 08:00] VITALS: BP 134/79
--- NOTE | 2017-08-27 08:47 | Infectious Diseases Prog Note ---
Assessment/Plan Assessment/Plan A 1. pneumonia 2. leucocytosis resolved 3. DM 4. HPN 5. OR P 1. continue ceftriaxone, Levaquin 2. will follow up cultures Subjective ROS Limited/Unobtainable: No Constitutional: Reports: no symptoms, other - feels better today Respiratory: Reports: dry cough Cardiovascular: Reports: no symptoms Gastrointestinal/Abdominal: Reports: no symptoms Musculoskeletal: Reports: swelling, other - legs Allergies: Coded Allergies: TETANUS VACCINES AND TOXOID (Verified Allergy, Unknown, 08/23/17) Objective Vital Signs Last 24 Hour Vital Signs Date Time Temp Pulse Resp B/P (MAP) Pulse Ox O2 Delivery O2 Flow Rate FiO2 08/27/17 04:00 98.2 81 20 151/69 99 Room Air 08/27/17 03:47 74 08/27/17 00:41 98.0 84 20 158/75 96 Room Air 08/26/17 23:56 82 08/26/17 20:51 83 08/26/17 20:00 98.0 84 20 152/71 95 Room Air 08/26/17 16:00 83 08/26/17 16:00 98.2 78 20 157/82 98 Room Air 08/26/17 12:00 86 08/26/17 12:00 97.2 80 19 150/76 99 Room Air Height (Feet): 5 Height (Inches): 7.00 Weight (Pounds): 160 General Appearance: no acute distress HEENT: mucous membranes moist Respiratory/Chest: lungs clear Cardiovascular: normal rate Abdomen: soft, non tender Extremities: other - varicose vein, small edema of legs Neurologic/Psychiatric: alert, oriented x 3, responsive Current Medications Medications (Trade) Dose Ordered Sig/Elías Route PRN Reason Start Time Stop Time Status Last Admin Dose Admin Albuterol/ Ipratropium (Albuterol/ Ipratropium) 3 ml Q4H PRN HHN Shortness of Breath 08/23/17 13:15 08/28/17 13:14 Aspirin (Ecotrin) 81 mg DAILY ORAL 08/24/17 09:00 09/23/17 08:59 08/26/17 09:05 Atorvastatin Calcium (Lipitor) 10 mg BEDTIME ORAL 08/25/17 21:00 09/24/17 20:59 08/26/17 20:54 Ceftriaxone Sodium 1 gm/ Dextrose 55 ml @ 110 mls/hr Q24H IVPB 08/24/17 00:00 08/31/17 00:00 08/26/17 23:32 Dextrose (Dextrose 50%) STAT PRN IV Hypoglycemia 08/23/17 16:45 09/22/17 16:44 Furosemide (Lasix) 20 mg ONCE ONCE IV 08/27/17 09:00 08/27/17 09:01 Heparin Sodium (Porcine) (Heparin 5000 units/ml) 5,000 units EVERY 12 HOURS SUBQ 08/23/17 21:00 09/22/17 20:59 08/26/17 20:55 Insulin Aspart (NovoLOG) BEFORE MEALS AND HS SUBQ 08/23/17 21:00 09/22/17 20:59 Lactobacillus Acidophilus (Culturelle) 1 tab TWICE A DAY ORAL 08/26/17 10:00 09/25/17 09:59 08/26/17 20:54 Latanoprost (Xalatan) 1 drop BEDTIME BOTH EYES 08/24/17 23:00 09/23/17 22:59 08/26/17 20:54 Levofloxacin (Levaquin) 500 mg DAILY ORAL 08/24/17 09:00 08/31/17 08:59 08/26/17 09:05 Metformin HCl (Glucophage) 500 mg TIAC ORAL 08/23/17 22:00 09/22/17 21:59 08/26/17 05:35 Sitagliptin Phosphate (Januvia) 100 mg ACBREAKFAST ORAL 08/24/17 06:30 09/23/17 06:29 08/26/17 05:35 Tolterodine Tartrate (Detrol) 2 mg TWICE A DAY ORAL 08/24/17 09:00 09/23/17 08:59 08/26/17 17:34 Zolpidem Tartrate (Ambien) 5 mg HSPRN PRN ORAL Insomnia 08/23/17 21:30 08/30/17 21:29 08/27/17 00:47 SHITAL MADRID Aug 27, 2017 08:47
[2017-08-27] MEDS: Aspirin EC 81mg tab ORAL SCH (09:41)
[2017-08-27] MEDS: Lactobacillus-GG tablet ORAL SCH ×2 (09:43→17:33)
[2017-08-27] MEDS: Tolterodine 2mg tab ORAL SCH ×2 (09:43→17:33)
[2017-08-27] MEDS: Levofloxacin 500mg tab ORAL SCH (09:43)
[2017-08-27] MEDS: Heparin 5000 units/ml inj SUBQ SCH ×2 (09:51→21:20)
[2017-08-27 12:00] VITALS: BP 151/69
[2017-08-27 16:00] VITALS: BP 165/82
[2017-08-27] MEDS ORDERED: DIOVAN HCT 1601 EACH ORAL (16:49)
[2017-08-27] MEDS ORDERED: D5NS 1000ml IV ONE (17:31)
[2017-08-27] MEDS: Metoprolol Succinate XL 25mg tab ORAL SCH (17:37)
--- NOTE | 2017-08-27 18:30 | Progress Note ---
DATE: 08/27/2017 CARDIOLOGY PROGRESS NOTE SUBJECTIVE: No chest pain. Less cough and congestion. No shortness of breath. She does complain of dark stool however. OBJECTIVE: VITAL SIGNS: Blood pressure is 158/75, pulse 85, respirations 20, and afebrile. LUNGS: Bilateral breath sounds. Few rhonchi. HEART: Regular rhythm and rate. Normal S1 and S2 with a fourth heart sound. ABDOMEN: Soft. EXTREMITIES: Trace edema, left greater than right. LABORATORY AND DIAGNOSTIC DATA: Venous duplex scan is completed, preliminary report is negative for DVT. Chest x-ray yesterday revealed improving infiltrates with mild edema. IMPRESSION: 1. Community-acquired pneumonia. 2. Acute myocardial infarction. 3. Type 2 diabetes mellitus. 4. Hypertensive heart disease. 5. Acute and chronic diastolic congestive heart failure. 6. Dark stool, rule out gastrointestinal bleed. PLAN: 1. Tighten blood pressure control. 2. Additional diuresis off IV fluids. 3. Check stool occult blood testing. 4. Hold antiplatelets if positive. If signs of gastrointestinal bleeding, empiric H2 yanni. 5. Continue antibiotics. 6. Respiratory hygiene. 7. Follow up chest radiograph. 8. Noninvasive assessment of coronary flow reserve, to be scheduled as outpatient per the patient's request. Antonio Julio M.D. DR: DIAN JOB#: [id number] CC:
[2017-08-27 20:00] VITALS: BP 168/87
[2017-08-27] MEDS: Latanoprost 0.005% Opth 2.5ml Soln BOTH EYES SCH (21:18)
[2017-08-27] MEDS: cefTRIAXone 1 GM in D5W 55 ML IVPB SCH (22:59)
[2017-08-28] VITALS: BP 140/58
[2017-08-28 04:00] VITALS: BP 145/75
[2017-08-28] MEDS: NovoLOG Insulin Flexpen SUBQ SCH ×4 (05:49→21:00)
[2017-08-28] MEDS: metFORMIN 500mg tab ORAL SCH ×3 (05:49→16:30)
[2017-08-28 08:00] VITALS: BP 181/91
[2017-08-28 08:19] LABS: BASOPHILS % (AUTO) 1.3 % (0.0-2.0); EOSINOPHILS % (AUTO) 2.3 % (0.0-3.0); LYMPHOCYTES % (AUTO) 31.5 % (20.0-45.0); MEAN CORPUSCULAR HEMOGLOBIN 29.5 PG (27.0-31.0); MEAN CORPUSCULAR HGB CONC 32.2 G/DL (32.0-36.0); MEAN CORPUSCULAR VOLUME 92 FL (80-99); MEAN PLATELET VOLUME 6.7 FL (6.5-10.1); MONOCYTES % (AUTO) 6.9 % (1.0-10.0); PLATELET COUNT 459 K/UL (150-450); RED BLOOD COUNT 4.97 M/UL (4.20-5.40); RED CELL DISTRIBUTION WIDTH 12.3 % (11.6-14.8); WHITE BLOOD COUNT 9.1 K/UL (4.8-10.8)
[2017-08-28] MEDS: Lactobacillus-GG tablet ORAL SCH ×3 (08:57→17:06)
[2017-08-28] MEDS: Metoprolol Succinate XL 25mg tab ORAL SCH ×2 (08:57→09:00)
[2017-08-28] MEDS: Tolterodine 2mg tab ORAL SCH ×3 (08:57→17:02)
[2017-08-28] MEDS: Levofloxacin 500mg tab ORAL SCH ×2 (08:57→09:00)
[2017-08-28] MEDS: Aspirin EC 81mg tab ORAL SCH ×2 (08:57→09:00)
[2017-08-28] MEDS: Heparin 5000 units/ml inj SUBQ SCH ×3 (09:00→17:30)
[2017-08-28 09:08] LABS: ALANINE AMINOTRANSFERASE 103 U/L (12-78); ALBUMIN/GLOBULIN RATIO 0.6 (1.0-2.7); ANION GAP 9 mmol/L (5-15); ASPARTATE AMINO TRANSFERASE 85 U/L (15-37); CALCIUM 9.6 MG/DL (8.5-10.1); CARBON DIOXIDE 29 MMOL/L (21-32); CHLORIDE 103 MMOL/L (98-107); CREATININE 0.8 MG/DL (0.55-1.30); MAGNESIUM 2.1 MG/DL (1.8-2.4); POTASSIUM 3.8 MMOL/L (3.5-5.1); SODIUM 141 MMOL/L (136-145); TOTAL PROTEIN 8.3 G/DL (6.4-8.2)
--- NOTE | 2017-08-28 11:39 | Infectious Diseases Prog Note ---
Assessment/Plan Assessment/Plan antibiotics : ceftriaxone, levoquin A 1. pneumonia 2. leucocytosis improving 3. DM 4. HTN 5. NM P 1. continue po levoquin 4 more days 2. d/c ceftriaxone 3. will follow up cultures 4. d.w Dr Julio Subjective Constitutional: Denies: fever, chills Respiratory: Reports: shortness of breath, dry cough Gastrointestinal/Abdominal: Denies: nausea, vomiting, diarrhea Musculoskeletal: Denies: pain Allergies: Coded Allergies: TETANUS VACCINES AND TOXOID (Verified Allergy, Unknown, 08/23/17) Objective Vital Signs Last 24 Hour Vital Signs Date Time Temp Pulse Resp B/P (MAP) Pulse Ox O2 Delivery O2 Flow Rate FiO2 08/28/17 08:00 97.2 82 18 181/91 94 Room Air 08/28/17 08:00 82 08/28/17 04:00 97.5 83 20 145/75 95 Room Air 08/28/17 04:00 73 08/28/17 00:00 82 08/28/17 00:00 99.1 88 20 140/58 94 Room Air 08/27/17 20:00 84 08/27/17 20:00 98.1 84 20 168/87 93 Room Air 08/27/17 17:37 88 165/82 08/27/17 16:00 97.8 88 20 165/82 96 Room Air 08/27/17 16:00 83 08/27/17 12:00 83 08/27/17 12:00 98.2 84 20 151/69 99 Room Air Height (Feet): 5 Height (Inches): 7.00 Weight (Pounds): 160 Respiratory/Chest: lungs clear Cardiovascular: normal rate, regular rhythm, no gallop/murmur Abdomen: soft, non tender Extremities: no edema Microbiology Date/Time Source Procedure Growth Status 08/26/17 07:00 Stool Clostridium difficile Toxin Assay - Final Complete Laboratory Tests Test 08/28/17 07:27 White Blood Count 9.1 K/UL (4.8-10.8) Red Blood Count 4.97 M/UL (4.20-5.40) Hemoglobin 14.7 G/DL (12.0-16.0) Hematocrit 45.6 % (37.0-47.0) Mean Corpuscular Volume 92 FL (80-99) Mean Corpuscular Hemoglobin 29.5 PG (27.0-31.0) Mean Corpuscular Hemoglobin Concent 32.2 G/DL (32.0-36.0) Red Cell Distribution Width 12.3 % (11.6-14.8) Platelet Count 459 K/UL (150-450) H Mean Platelet Volume 6.7 FL (6.5-10.1) Neutrophils (%) (Auto) 58.0 % (45.0-75.0) Lymphocytes (%) (Auto) 31.5 % (20.0-45.0) Monocytes (%) (Auto) 6.9 % (1.0-10.0) Eosinophils (%) (Auto) 2.3 % (0.0-3.0) Basophils (%) (Auto) 1.3 % (0.0-2.0) Sodium Level 141 MMOL/L (136-145) Potassium Level 3.8 MMOL/L (3.5-5.1) Chloride Level 103 MMOL/L (98-107) Carbon Dioxide Level 29 MMOL/L (21-32) Anion Gap 9 mmol/L (5-15) Blood Urea Nitrogen 10 mg/dL (7-18) Creatinine 0.8 MG/DL (0.55-1.30) Estimat Glomerular Filtration Rate mL/min (>60) Glucose Level 121 MG/DL (74-106) H Calcium Level 9.6 MG/DL (8.5-10.1) Magnesium Level 2.1 MG/DL (1.8-2.4) Total Bilirubin 0.5 MG/DL (0.2-1.0) Aspartate Amino Transf (AST/SGOT) 85 U/L (15-37) H Alanine Aminotransferase (ALT/SGPT) 103 U/L (12-78) H Alkaline Phosphatase 104 U/L (46-116) Pro-B-Type Natriuretic Peptide 114 pg/mL (0-125) Total Protein 8.3 G/DL (6.4-8.2) H Albumin 3.2 G/DL (3.4-5.0) L Globulin 5.1 g/dL Albumin/Globulin Ratio 0.6 (1.0-2.7) L SHARAN OLIVIER Aug 28, 2017 11:39
[2017-08-28 12:00] VITALS: BP_SYST 126; BP_SYST 147; BP_DIAS 77; BP_DIAS 82
--- NOTE | 2017-08-28 15:06 | Diagnostic Imaging Report ---
Indication: Dyspnea Comparison: 08/26/2017 2 views of the chest obtained. There is some interstitial prominence without definite CHF. Heart is normal in size. Bones are osteopenic. IMPRESSION: No acute finding suspected
[2017-08-28 16:00] VITALS: BP_SYST 126; BP_SYST 147; BP_DIAS 54; BP_DIAS 77
[2017-08-28] MEDS ORDERED: METOPROLOL SUCC25 MG ORAL (16:39)
[2017-08-28] MEDS ORDERED: AMBIEN5 MG ORAL (16:39)
[2017-08-28] MEDS ORDERED: LEVAQUIN500 MG ORAL (16:39)
[2017-08-28 18:15] LABS: L.PNEUMOPHILIA SERO-1 <0.91 OD ratio (0.00-0.90)
[2017-08-28 19:07] LABS: L.PNEUMOPHILIA IGM SERO-1 < 1:16 (< 1:16)
[2017-08-28 20:00] VITALS: BP 145/59
[2017-08-28] MEDS: Latanoprost 0.005% Opth 2.5ml Soln BOTH EYES SCH (21:00)
[2017-08-28 21:18] LABS: MYCOPLASMA PNEUMONIAE AB IGM <770 U/mL (0-769)
[2017-08-28 22:13] LABS: MYCOPLASMA PNEUMONIAE AB IGG <100 U/mL (0-99)
--- NOTE | 2017-08-28 22:45 | Progress Note ---
DATE: 08/28/2017 CARDIOLOGY PROGRESS NOTE AND INTERNAL MEDICINE COVERAGE SUBJECTIVE: The patient is without any shortness of breath or cough. A detailed discussion was undertaken both yesterday and today regarding her resolving pneumonia as well as the status of her cardiac function following mild troponin elevation. The patient was made aware she had a heart attack, it was mild. Her ejection fraction remains normal. I recommended a stress test to assess her coronary flow reserve and risk for further ischemic events in the future. The patient does not wish to have a stress test. She is aware of what they are as her mother had one in the past. She states says that she wants to be managed medically and does not want any such tests at this time. She will consider further cardiac workup after the new year. I have made aware of continued need for medical therapy to which she agrees and that her prognosis based on her ejection fraction is good. The patient had some dark stools. Her hemoglobin remained stable in fact increasing. Stool occult blood test is pending. OBJECTIVE: VITAL SIGNS: Blood pressure 140/58, pulse 82, respiratory rate 20, and T-max 99.1 degrees. LUNGS: Good breath sounds. No wheezing. HEART: Regular rhythm and rate. Normal S1, S2 with a fourth heart sound. ABDOMEN: Soft, obese. EXTREMITIES: No edema. LABORATORY AND DIAGNOSTIC DATA: Venous duplex scan negative. Potassium 3.8, BUN 10, and creatinine 0.8. AST and ALT have increased to 85 over 103. Albumin 3.2. Hemoglobin 14.7. IMPRESSION: 1. Recovering community-acquired pneumonia. 2. Acute myocardial infarction, no signs of acute congestive heart failure. 3. Hypertensive heart disease with episodes of labile blood pressure. 4. Type 2 diabetes mellitus. 5. Transaminitis corresponding to initiation of statin drug. PLAN: Discontinue statin therapy. Outpatient followup of liver function, the patient agrees. Cardiovascular regimen reviewed and discussed. Outpatient titration of antihypertensives will follow. Infectious Disease recommendations for oral Levaquin for five more days ordered. The patient was given outpatient follow up with Dr. Thomas and myself and advised to contact me or come to the hospital urgently should she have episodes of chest pain or significant shortness of breath. Antonio Julio M.D. DR: Dontae JOB#: [id number] CC:
--- NOTE | 2017-08-30 10:46 | Diagnostic Imaging Report ---
APPROVED REPORT CPT Code: 05259 Present Symptoms Lower Extremity Pain: Bilateral BILATERAL: Imaging reveals a patent deep venous system bilaterally. There is no evidence of thrombus within the femoral, popliteal or tibial segments. The greater saphenous veins are also within normal limits. Doppler indicates normal spontaneous flow within these segments.
--- NOTE | 2017-08-31 04:00 | Discharge Summary 2 SIG ---
DATE OF ADMISSION: 08/23/2017 DATE OF DISCHARGE: 08/29/2017 ATTENDING PHYSICIAN: Herbie Thomas M.D. CONSULTANTS: 1. Antonio Julio M.D. 2. Ashlyn Good M.D. BRIEF HOSPITAL COURSE: The patient is a 72-year-old female, who has history of hypertension and diabetes presented with complaints of shortness of breath, cough, congestion, subjective fever, and chills for several weeks prior to admission. Denied any ill contacts. Productive cough has not improved. Because of persistent cough and congestion, she presented to ED and on evaluation had leukocytosis. [place]BC [place] [id number]. Chest x-ray showed bilateral interstitial and alveolar infiltrates. She was pancultured and was started on IV ceftriaxone and Levaquin. She was noted to have elevated troponin. Cardiac enzymes were monitored. She was placed on an aspirin and was started on statin. She had an echocardiogram done that showed ejection fraction of 55%. She came in with tachycardia and leukocytosis and was febrile. Temperature of 100.2. Leukocytosis improved. Ceftriaxone was eventually discontinued. Cardiac enzymes were monitored. Liver function tests were elevated. Lipitor was discontinued. The patient was made aware of her cardiac function and mild troponin elevation. She was recommended to undergo stress test to assess coronary flow reserve and risk for further ischemic events in the future. However, the patient does not wish to have anymore test and wants to be managed medically. She was eventually cleared for discharge to continue on Levaquin for five more days. FINAL DIAGNOSES: 1. Recovering community-acquired pneumonia. 2. Acute myocardial infarction. She had no signs of acute congestive heart failure. 3. Hypertensive heart disease with episodes of labile blood pressure. 4. Type 2 diabetes mellitus. 5. Transaminitis corresponding to initiation of statin drug. 6. Pneumonia. 7. Hypertension. 8. Diabetes mellitus. DISPOSITION: The patient was discharged home. DISCHARGE MEDICATIONS: Refer to medication list. DISCHARGE INSTRUCTIONS: Follow up with Dr. Julio and Dr. Thomas in a week. Antonio Julio M.D. I have been assigned to dictate discharge summary on this account and I was not involved in the patient's management. Melanie Poole N.P. DR: IVANIA JOB#: [id number] CC:
== END 2017-08-29 00:22 | disposition home or self-care (01) | DRG 193 ==
LOC: EDBD 04:40 → EMR 04:58 → 2E 05:18 → EDBEDREQ 13:49
DX: J18.9 Pneumonia, unspecified organism (principal); I21.9 Acute myocardial infarction, unspecified; E44.0 Moderate protein-calorie malnutrition; I50.32 Chronic diastolic (congestive) heart failure; E11.9 Type 2 diabetes mellitus without complications; I11.0 Hypertensive heart disease with heart failure; R74.0 Nonspecific elevation of levels of transaminase and lactic acid dehydrogenase [LDH]; E78.00 Pure hypercholesterolemia, unspecified; Z79.4 Long term (current) use of insulin; Z88.7 Allergy status to serum and vaccine; I70.91 Generalized atherosclerosis; R60.9 Edema, unspecified; R13.10 Dysphagia, unspecified; E78.5 Hyperlipidemia, unspecified
CPT/HCPCS: 36415; 71010; 71020; 76700; 80048; 80053; 80061; 81003; 82248; 82270; 82550; 82553; 82962; 83605; 83735; 83880; 84443; 84484; 85025; 86713; 86738; 87040; 87324; 92610; 93005; 93306; 93970; 99285; J1815; J8499

== ENCOUNTER 2019-05-21 14:20 | Outpatient (RCR) | payer MEDICARE, OTHER ==
[~2019-05-21 14:20] MED LIST: AMBIEN5 MG ORAL; DIOVAN HCT 1601 EACH ORAL; LEVAQUIN500 MG ORAL; METOPROLOL SUCC25 MG ORAL; UNOBMED
== END 2019-06-02 | disposition home or self-care (01) ==
LOC: WCC 14:20
DX: I73.9 Peripheral vascular disease, unspecified (principal); R60.9 Edema, unspecified; I13.10 Hypertensive heart and chronic kidney disease without heart failure, with stage 1 through stage 4 chronic kidney disease, or unspecified chronic kidney disease; E11.22 Type 2 diabetes mellitus with diabetic chronic kidney disease; N18.9 Chronic kidney disease, unspecified; M06.9 Rheumatoid arthritis, unspecified
CPT/HCPCS: G0463